=== PATIENT | female | born 2000 | race African-American/Black ===

== ENCOUNTER 2020-01-23 18:25 | Emergency (ER) | payer MEDICAID ==
[~2020-01-23] VITALS: Ht 154.9 cm; Wt 49.0 kg
[2020-01-23 18:31] VITALS: BP 119/80
[2020-01-23] MEDS ORDERED: IBUPROFEN 600MG TABLET PO STA (20:54)
== END 2020-01-23 22:49 | disposition home or self-care (01) ==
LOC: ER 18:25
DX: S62.511A Displaced fracture of proximal phalanx of right thumb, initial encounter for closed fracture (principal); V03.99XA Pedestrian with other conveyance injured in collision with car, pick-up truck or van, unspecified whether traffic or nontraffic accident, initial encounter; Y93.89 Activity, other specified; Y92.89 Other specified places as the place of occurrence of the external cause; Y99.8 Other external cause status; J45.909 Unspecified asthma, uncomplicated; Z88.2 Allergy status to sulfonamides
CPT/HCPCS: 29125; 73110; 73120; 81025; 99284

== ENCOUNTER 2020-09-22 07:37 | Emergency (ER) | payer MEDICAID ==
[~2020-09-22] VITALS: Ht 154.9 cm; Wt 58.0 kg
[2020-09-22 08:44] LABS: BASOPHILS % 0.8 % (0.0-2.0); EOSINOPHILS % 2.7 % (0.0-5.0); HEMATOCRIT. 40.9 % (36.0-48.0); HEMOGLOBIN. 14.1 g/dL (12.0-16.0); LYMPHOCYTES % 33.8 % (20.0-50.0); MEAN CORPUSCULAR VOLUME 90.2 fL (81.0-99.0); MEAN PLATELET VOLUME 8.3 fl (7.4-10.4); MONOCYTES % 6.7 % (2.0-8.0); PLATELET 363 x1000/uL (130-400); RED BLOOD CELL COUNT 4.54 mill/uL (4.2-5.4); RED CELL DISTRIBUTION WIDTH 13.3 % (11.6-14.6)
[2020-09-22 08:50] LABS: CHLORIDE 104 mEq/L (98-107)
[2020-09-22 09:13] LABS: B-HCG QUANTITATIVE 6894 mIU/mL (<3)
[2020-09-22 09:54] LABS: CLARITY URINE CLOUDY (CLEAR); COLOR URINE YELLOW (YELLOW); KETONES URINE NEGATIVE (NEGATIVE); LEUKOCYTE ESTERASE URINE TRACE (NEGATIVE); NITRITE URINE NEGATIVE (NEGATIVE); OCCULT BLOOD URINE 3+ (NEGATIVE); PH URINE 5.5 (4.5-8.0); PROTEIN URINE NEGATIVE (NEGATIVE); SPECIFIC GRAVITY URINE 1.023 (1.005-1.030); UROBILINOGEN URINE 0.2 E.U./dL (0.2-1.0)
[2020-09-22] MEDS ORDERED: TOPUD PO (10:12)
[2020-09-22 10:37] VITALS: BP 121/86
== END 2020-09-22 10:43 | disposition home or self-care (01) ==
LOC: ER 07:37
DX: O03.4 Incomplete spontaneous abortion without complication (principal); O26.892 Other specified pregnancy related conditions, second trimester; J45.909 Unspecified asthma, uncomplicated; R56.9 Unspecified convulsions; Z3A.01 Less than 8 weeks gestation of pregnancy
CPT/HCPCS: 36415; 76801; 76817; 80053; 81003; 81025; 84702; 85025; 86850; 86900; 86901; 93005; 99285; Z7610

== ENCOUNTER 2021-06-22 19:28 | Emergency (ER) | payer MEDICAID, OTHER ==
[~2021-06-22] VITALS: Ht 154.9 cm; Wt 68.0 kg
[~2021-06-22 19:28] MED LIST: TOPUD PO
[2021-06-22 21:31] LABS: CLARITY URINE CLOUDY (CLEAR); COLOR URINE DARK YELLOW (YELLOW); KETONES URINE TRACE (NEGATIVE); LEUKOCYTE ESTERASE URINE NEGATIVE (NEGATIVE); NITRITE URINE NEGATIVE (NEGATIVE); OCCULT BLOOD URINE NEGATIVE (NEGATIVE); PROTEIN URINE NEGATIVE (NEGATIVE); SPECIFIC GRAVITY URINE 1.026 (1.005-1.030)
[2021-06-22 23:09] LABS: BASOPHILS % 0.6 % (0.0-2.0); EOSINOPHILS % 2.4 % (0.0-5.0); HEMOGLOBIN. 14.1 g/dL (12.0-16.0); LYMPHOCYTES % 23.1 % (20.0-50.0); MEAN CORPUSCULAR HEMOGLOBIN 30.4 pg (28.0-32.0); MEAN CORPUSCULAR VOLUME 90.1 fL (81.0-99.0); MEAN PLATELET VOLUME 9.3 fl (7.4-10.4); MONOCYTES % 5.7 % (2.0-8.0); NEUTROPHILS % 68.2 % (40.0-76.0); PLATELET 379 x1000/uL (130-400); RED BLOOD CELL COUNT 4.66 mill/uL (4.2-5.4); RED CELL DISTRIBUTION WIDTH 13.8 % (11.6-14.6)
[2021-06-22 23:17] LABS: CHLORIDE 106 mEq/L (98-107)
[2021-06-22 23:21] LABS: HCG SCREEN POSITIVE
[2021-06-23] MEDS ORDERED: CEPH500C2 MT (00:14)
[2021-06-23 00:34] VITALS: BP 122/68
== END 2021-06-23 00:36 | disposition home or self-care (01) ==
LOC: ER 19:28
DX: O26.891 Other specified pregnancy related conditions, first trimester (principal); O20.0 Threatened abortion; O23.41 Unspecified infection of urinary tract in pregnancy, first trimester; N39.0 Urinary tract infection, site not specified; J45.909 Unspecified asthma, uncomplicated; R56.9 Unspecified convulsions; Z3A.01 Less than 8 weeks gestation of pregnancy; Z88.2 Allergy status to sulfonamides; Z88.3 Allergy status to other anti-infective agents; Z87.11 Personal history of peptic ulcer disease; Z91.040 Latex allergy status
CPT/HCPCS: 36415; 76801; 80053; 81003; 81025; 84702; 84703; 85025; 86900; 99284

== ENCOUNTER 2021-08-05 20:37 | Emergency (ER) | payer MEDICAID, OTHER ==
[~2021-08-05] VITALS: Ht 154.9 cm; Wt 67.0 kg
[~2021-08-05 20:37] MED LIST changes: +CEPH500C2 MT
[2021-08-05] MEDS: IBUPROFEN 400MG TABLET PO ONE ×2 (22:20→22:21)
[2021-08-05] MEDS ORDERED: ACETAMINOPHEN 325MG TABLET PO ONE (22:30)
[2021-08-05] MEDS ORDERED: TOPUD MT (22:30)
[2021-08-05 23:46] VITALS: BP 113/66
== END 2021-08-05 23:47 | disposition home or self-care (01) ==
LOC: ER 20:37
DX: S92.912A Unspecified fracture of left toe(s), initial encounter for closed fracture (principal); J45.909 Unspecified asthma, uncomplicated; Z91.040 Latex allergy status; Z88.1 Allergy status to other antibiotic agents; Z88.2 Allergy status to sulfonamides; Z86.59 Personal history of other mental and behavioral disorders; W18.30XA Fall on same level, unspecified, initial encounter; Y93.89 Activity, other specified; Y92.89 Other specified places as the place of occurrence of the external cause; Y99.8 Other external cause status
CPT/HCPCS: 29515; 73630; 81025; 99283

== ENCOUNTER 2023-11-17 21:24 | Emergency (ER) | payer OTHER ==
[~2023-11-17] VITALS: Ht 154.9 cm; Wt 79.0 kg
[~2023-11-17 21:24] MED LIST changes: +IBUP-2029 MT; +TOPUD MT
[2023-11-17 21:36] VITALS: BP 128/77; PULSE 104; RESP 18; TEMP 98; O2SAT 98
[2023-11-17] MEDS ORDERED: ACETAMINOPHEN 325MG TABLET PO ONE (22:15)
[2023-11-17] MEDS ORDERED: IBUP-2028 MT (22:20)
== END 2023-11-17 23:29 | disposition home or self-care (01) ==
LOC: ER 21:34
DX: S63.501A Unspecified sprain of right wrist, initial encounter (principal); J45.909 Unspecified asthma, uncomplicated; M25.531 Pain in right wrist; W18.39XA Other fall on same level, initial encounter; Y93.89 Activity, other specified; Y92.89 Other specified places as the place of occurrence of the external cause; Y99.8 Other external cause status
CPT/HCPCS: 29125; 73090; 73110; 73120; 99284

== ENCOUNTER 2023-11-19 02:02 | Emergency (ER) | payer OTHER ==
[~2023-11-19 02:02] MED LIST changes: +IBUP-2028 MT
[2023-11-19 02:13] VITALS: O2SAT 97
[2023-11-19] MEDS ORDERED: LORAZEPAM 2MG/ML INJ IV ONE (02:15)
[2023-11-19] MEDS ORDERED: SODIUM CHLORIDE 0.9% 1,000 ML IV ONE (02:15)
[2023-11-19] MEDS: SODIUM CHLORIDE 0.9% 1,000 ML IV ONE (02:15)
[2023-11-19] MEDS ORDERED: LORAZEPAM 2MG/ML INJ IV NR (02:30)
[2023-11-19] MEDS ORDERED: LEVETIRACETAM 500MG PREMIX 100 ML IV ONE (02:30)
[2023-11-19 02:37] LABS: BASOPHILS % 0.5 % (0.0-2.0); EOSINOPHILS % 2.4 % (0.0-5.0); HEMOGLOBIN. 14.7 g/dL (12.0-16.0); MEAN CORPUSCULAR HEMOGLOBIN 31.4 pg (28.0-32.0); MEAN CORPUSCULAR HGB CONC 34.2 g/dL (31.0-37.0); MEAN CORPUSCULAR VOLUME 91.7 fL (81.0-99.0); MEAN PLATELET VOLUME 7.7 fl (7.4-10.4); MONOCYTES % 5.6 % (2.0-8.0); NEUTROPHILS % 62.5 % (40.0-76.0); PLATELET 450 x1000/uL (130-400); RED BLOOD CELL COUNT 4.69 mill/uL (4.2-5.4); RED CELL DISTRIBUTION WIDTH 14.7 % (11.6-14.6); WHITE BLOOD COUNT 10.3 x1000/uL (4.5-11.0)
[2023-11-19 02:47] LABS: PROTHROMBIN TIME 10.7 sec (9.6-11.0)
[2023-11-19 02:50] LABS: CARBON DIOXIDE 22 mEq/L (21-32); CHLORIDE 104 mEq/L (98-107); POTASSIUM 3.1 mEq/L (3.5-5.1); SODIUM 138 mEq/L (136-145)
[2023-11-19 02:55] LABS: CREATININE 0.7 mg/dL (0.6-1.0)
[2023-11-19 02:56] LABS: ETHANOL BLOOD 258 mg/dL (<10); GLUCOSE 92 mg/dL (70-105)
[2023-11-19 02:57] LABS: ACETAMINOPHEN < 2 ug/mL (10-30); ALANINE AMINOTRANSFERASE 29 IU/L (10-49); ALBUMIN 4.4 g/dL (3.2-4.8); ASPARTATE AMINOTRANSFERASE 32 IU/L (<34)
[2023-11-19 02:58] LABS: BILIRUBIN DIRECT 0.1 mg/dL (<=3.0); BILIRUBIN TOTAL 0.3 mg/dL (0.1-1.0); PROTEIN TOTAL 7.8 g/dL (6.0-8.3)
[2023-11-19] MEDS: LEVETIRACETAM 500MG PREMIX 100 ML IV NR (03:36)
[2023-11-19 03:40] LABS: TROPONIN I HIGH SENSITIVITY < 4 ng/L (3.0-34); UREA NITROGEN BLOOD < 5 mg/dL (9-23)
[2023-11-19 03:49] LABS: LACTIC ACID 4.9 mmol/L (0.4-2.0)
[2023-11-19 04:27] LABS: CLARITY URINE CLEAR (CLEAR); COLOR URINE YELLOW (YELLOW); GLUCOSE URINE NEGATIVE (NEGATIVE); KETONES URINE NEGATIVE (NEGATIVE); LEUKOCYTE ESTERASE URINE NEGATIVE (NEGATIVE); NITRITE URINE NEGATIVE (NEGATIVE); OCCULT BLOOD URINE TRACE (NEGATIVE); PROTEIN URINE NEGATIVE (NEGATIVE); SPECIFIC GRAVITY URINE 1.001 (1.005-1.030); UROBILINOGEN URINE 0.2 E.U./dL (0.2-1.0)
[2023-11-19 04:32] LABS: *AMPHETAMINES SCREEN URINE NEGATIVE (NEGATIVE); *BARBITURATES SCREEN URINE NEGATIVE (NEGATIVE); *BENZODIAZEPINES SCREEN URINE NEGATIVE (NEGATIVE); *COCAINE SCREEN URINE NEGATIVE (NEGATIVE)
[2023-11-19 04:33] LABS: CANNABINOID URINE SCREEN NEGATIVE (NEGATIVE); ECSTASY MDMA SCREEN URINE NEGATIVE (NEGATIVE); METHADONE URINE SCREEN NEGATIVE (NEGATIVE); OPIATES URINE SCREEN NEGATIVE (NEGATIVE); PHENCYCLIDINE URINE SCREEN NEGATIVE (NEGATIVE)
[2023-11-19] MEDS: POTASSIUM CHLORIDE 20MEQ/PACKET PO NR (05:25)
[2023-11-19] MEDS: ACETAMINOPHEN 325MG TABLET PO ONE (05:25)
[2023-11-19 07:28] VITALS: BP 116/66; PULSE 89; RESP 16; TEMP 98.1
[2023-11-19 08:46] LABS: BACTERIA URINE TRACE; RBC URINE 0-2 /hpf (0-2); SQUAMOUS EPITHELIAL CELL URINE 2+ /lpf (RARE/1+); WBC URINE 0-2 /hpf (0-2); YEAST URINE NONE SEEN
[2023-11-19 09:26] LABS: HCG SCREEN NEGATIVE
== END 2023-11-19 07:38 | disposition home or self-care (01) ==
LOC: ER 02:12
DX: S09.8XXA Other specified injuries of head, initial encounter (principal); F10.129 Alcohol abuse with intoxication, unspecified; E87.20 Acidosis, unspecified; Z88.2 Allergy status to sulfonamides; Z91.040 Latex allergy status; Z88.8 Allergy status to other drugs, medicaments and biological substances; Y08.89XA Assault by other specified means, initial encounter; Y93.89 Activity, other specified; Y92.89 Other specified places as the place of occurrence of the external cause; Y99.8 Other external cause status; Y90.8 Blood alcohol level of 240 mg/100 ml or more
CPT/HCPCS: 36415; 80048; 80076; 80305; 80307; 80320; 80329; 81003; 83605; 83880; 84484; 84703; 85025; 96361; 96365; 99285; J1953; J7030; G0480